=== PATIENT | male | born 1990 | race Two or more races ===

== ENCOUNTER 2023-05-09 02:52 | Emergency (ER) | payer BC ==
[~2023-05-09] VITALS: Ht 165.1 cm; Wt 72.6 kg
[2023-05-09] MEDS ORDERED: KETOROLAC TROMETHAMINE 60 MG VIAL IM STA (06:52)
[2023-05-09] MEDS ORDERED: DEXAMETHASONE SODIUM PHOSPHATE 4 MG/ML VIAL IM STA (06:53)
[2023-05-09] MEDS ORDERED: ACETAMINOPHEN 500 MG GEL..CAP PO STA (06:54)
== END 2023-05-09 08:25 | disposition home or self-care (01) ==
LOC: ER 02:52
DX: S00.83XA Contusion of other part of head, initial encounter (principal); Y08.89XA Assault by other specified means, initial encounter; Y93.9 Activity, unspecified; Y92.89 Other specified places as the place of occurrence of the external cause; Y99.9 Unspecified external cause status